=== PATIENT | male | born 1990 ===

== ENCOUNTER 2021-04-14 04:06 | Emergency (ER) | payer SELFPAY ==
[2021-04-14] MEDS ORDERED: Boostrix 0.5 ML (Tdap) VIAL ONE (04:39)
[2021-04-14] MEDS ORDERED: Lidocaine 4% Cream 5 GM TUBE w/ Tegaderm ONE (04:39)
[2021-04-14] MEDS ORDERED: Ketorolac Tromethamine 30 MG/ML VIAL ONE (04:39)
== END 2021-04-14 05:34 | disposition home or self-care (01) ==
LOC: ERS 04:06
DX: S80.211A Abrasion, right knee, initial encounter (principal); L25.9 Unspecified contact dermatitis, unspecified cause
CPT/HCPCS: 90471; 90715; 96372; J1885